=== PATIENT | female | born 1995 | race Caucasian/White ===

== ENCOUNTER 2018-08-26 21:15 | Emergency (ER) | payer BC ==
[~2018-08-26] VITALS: Ht 165.1 cm; Wt 49.4 kg
[2018-08-26 21:26] VITALS: BP 101/59; PULSE 98; RESP 20; Ht 165.1 cm; Wt 49.4 kg
[2018-08-26] MEDS ORDERED: ACETAMINOPHEN 325 MG TAB PO STA (23:59)
[2018-08-26] MEDS ORDERED: SOD CHLORIDE 0.9% 1,000 ML IV STA (23:59)
[2018-08-27] MEDS ORDERED: SOD CHLORIDE 0.9% 1,000 ML IV STA (00:09)
[2018-08-27] MEDS ORDERED: KETOROLAC 30 MG INJ IV STA (00:09)
[2018-08-27] MEDS ORDERED: DIPHENHYDRAMINE 50 MG INJ IV STA (00:09)
[2018-08-27] MEDS ORDERED: ONDANSETRON 4 MG INJ IV STA (00:09)
[2018-08-27] MEDS ORDERED: METOCLOPRAMIDE 10 MG INJ IV STA (00:09)
[2018-08-27] MEDS ORDERED: ACETAMINOPHEN 325 MG TAB PO STA (00:09)
[2018-08-27] MEDS ORDERED: NAPR-985 PO (06:35)
[2018-08-27] MEDS ORDERED: ACET325T33 PO (06:35)
[2018-08-27] MEDS ORDERED: ONDA4TAB14 PO (06:37)
[2018-08-27] MEDS ORDERED: MED4DP PO (06:40)
[2018-08-27] MEDS ORDERED: SOD CHLORIDE 0.9% 500 ML IV STA (06:53)
--- NOTE | 2018-08-27 23:34 | ERD ---
ER Documentation Chief Complaint Chief Complaint GOLDBERG since last night; has hx of rheumatoid arthritis- needs more meds HPI 22 year old F with hx of nephrectomy at 3 year of age and rheumatoid arthritis who presents to the ED with complaints of a progressively worsening headache since last night. Pt states pain is "pounding," starts at her bilateral temporal area and radiates towards her parietal scalp. No known precipitating or ex acerbating factors. Endorses photophobia and nausea. No vomiting. No neck stiffness/pain. No recent travel. Took a Tylenol at 6:30pm with temporary relief. Also reports shortness of breath with substernal chest pain. Pt also endorses body aches and joint pain. Was previously taking Naproxen and steroids for her RA, but took a drug holiday 1 year ago and has since not been taking any meds. ROS All systems reviewed and are negative except as per history of present illness. Medications Home Meds Active Scripts Methylprednisolone* (Medrol* DOSE PACK) 4 Mg/Dose-Pack Tab.ds.pk, 4 MG PO . DIRECTED, #1 PACKET Prov:DISHIGRIKIAN,ZEPYUR N PA-C 08/27/18 Ondansetron (Ondansetron Odt) 4 Mg Tab.rapdis, 4 MG PO Q6H PRN for NAUSEA AND/OR VOMITING, #10 TAB Prov:DISHIGRIKIAN,ZEPYUR N PA-C 08/27/18 Acetaminophen* (Tylenol*) 325 Mg Tablet, 2 TAB PO Q6 PRN for PAIN AND OR ELEVATED TEMP, #20 TAB Prov:DISHIGRIKIAN,ZEPYUR N PA-C 08/27/18 Naproxen* (Naprosyn*) 500 Mg Tablet, 500 MG PO BID PRN for PAIN AND/OR INFLAMMATION, #30 TAB Prov:DISHIGRIKIAN,ZEPYUR N PA-C 08/27/18 Allergies Allergies: Coded Allergies: No Known Allergy (Unverified , 08/26/18) PMhx/Soc Hx Miscellaneous Medical Probl: Yes (rheumatoid arthritis) Physical Exam Vitals Vital Signs Date Temp Pulse Resp B/P (MAP) Pulse Ox O2 O2 Flow FiO2 Time Delivery Rate 08/26/18 102.8 98 20 101/59 100 21:26 (73) Physical Exam Const: No acute distress Head: Atraumatic Eyes: Normal Conjunctiva, PERRL. EOMI. ENT: Normal External Ears, Nose and Mouth. Neck: Full range of motion. No meningismus. Resp: Clear to auscultation bilaterally Cardio: Regular rate and rhythm, no murmurs Abd: Soft, non tender, non distended. Normal bowel sounds Skin: No petechiae or rashes Back: No midline or flank tenderness Ext: No cyanosis, or edema Neur: Awake and alert x3. Sensation and motor grossly intact. CN II-XII intact. Normal gait. Psych: Normal Mood and Affect Result Diagram: 08/27/183308/27/184 Results 24 hrs Laboratory Tests Test 08/27/18 00:34 08/27/18 00:54 08/27/18 05:19 White Blood Count 17.9 10^3/ul Red Blood Count 3.61 10^6/ul Hemoglobin 11.0 g/dl Hematocrit 32.3 % Mean Corpuscular Volume 89.5 fl Mean Corpuscular Hemoglobin 30.5 pg Mean Corpuscular 34.1 g/dl Hemoglobin Concent Red Cell Distribution Width 11.8 % Platelet Count 216 10^3/UL Mean Platelet Volume 9.6 fl Immature Granulocytes % 0.800 % Neutrophils % 85.6 % Lymphocytes % 7.1 % Monocytes % 6.0 % Eosinophils % 0.2 % Basophils % 0.3 % Nucleated Red Blood Cells % 0.0 /100WBC Immature Granulocytes # 0.140 10^3/ul Neutrophils # 15.3 10^3/ul Lymphocytes # 1.3 10^3/ul Monocytes # 1.1 10^3/ul Eosinophils # 0.0 10^3/ul Basophils # 0.1 10^3/ul Nucleated Red Blood Cells # 0.0 10^3/ul Sodium Level 137 mmol/L Potassium Level 3.3 mmol/L Chloride Level 102 mmol/L Carbon Dioxide Level 25 mmol/L Anion Gap 10 Blood Urea Nitrogen 8 mg/dl Creatinine 0.68 mg/dl Est Glomerular Filtrat > 60 mL/min Rate mL/min Glucose Level 104 mg/dl Calcium Level 8.5 mg/dl POC Beta HCG, Qualitative NEGATIVE Urine Color YELLOW Urine Clarity CLEAR Urine pH 5.0 Urine Specific [place] 1.015 Urine Ketones 1+ mg/dL Urine Nitrite NEGATIVE mg/dL Urine Bilirubin NEGATIVE mg/dL Urine Urobilinogen NEGATIVE mg/dL Urine Leukocyte Esterase NEGATIVE Devon/ul Urine Microscopic RBC 4 /HPF Urine Microscopic WBC 2 /HPF Urine Bacteria FEW /HPF Urine Hemoglobin 2+ mg/dL Urine Glucose NEGATIVE mg/dL Urine Total Protein NEGATIVE mg/dl Current Medications Medications Dose Sig/Kostas Start Time Status Last (Trade) Ordered Route PRN Stop Time Admin Dose Reason Admin Sodium 1,000 ml @ Q1H STAT 08/26/18 DC Chloride 1,000 mls/hr IV 23:59 08/27/18 00:09 650 mg ONCE STAT 08/26/18 DC Acetaminophen PO 23:59 (Tylenol 08/27/18 00:09 Tab) Sodium 1,000 ml @ Q1H STAT 08/27/18 DC 08/27/18 Chloride 1,000 mls/hr IV 00:09 01:00 08/27/18 01:08 650 mg ONCE STAT 08/27/18 DC 08/27/18 Acetaminophen PO 00:09 00:59 (Tylenol 08/27/18 00:11 Tab) 10 mg ONCE STAT 08/27/18 DC 08/27/18 Metoclopramid IV 00:09 00:58 e HCl 08/27/18 00:11 (Reglan) Ondansetron 4 mg ONCE STAT 08/27/18 DC 08/27/18 HCl (Zofran IV 00:09 00:59 Inj) 08/27/18 00:11 Ketorolac 30 mg ONCE STAT 08/27/18 DC 08/27/18 Tromethamine IV 00:09 00:58 (Toradol) 08/27/18 00:11 25 mg ONCE STAT 08/27/18 DC 08/27/18 Diphenhydrami IV 00:09 00:58 ne HCl 08/27/18 00:11 (Benadryl) Sodium 500 ml @ Q1H STAT 08/27/18 DC 08/27/18 Chloride 500 mls/hr IV 06:53 06:56 08/27/18 07:52 Procedures/MDM LABS CBC: WBC of 17 with left shift. Mild anemia with h/h of 11 and 32. CMP: no e/o severe acidosis, alkalosis, renal failure, diabetic ketoacidosis, liver disease Urine: no significant hematuria or pyuria beta hcg : negative Influenza: negative Otherwise within normal limits, unremarkable or as documented above. DIAGNOSTIC IMAGING: PROCEDURE: XR Chest 1 View CLINICAL INDICATION: Shortness of breath. TECHNIQUE: VIEWS: 1 IMAGES: 1 COMPARISON: None. FINDINGS: CARDIAC AND MEDIASTINAL SILHOUETTES: Within normal limits. LUNGS: Appear clear. OSSEOUS STRUCTURES: Unremarkable. IMPRESSION: 1. No acute abnormality is appreciated. ED COURSE: The patient was given Tylenol, IVFs, Zofran, Toradol, Benadryl, Reglan The medication was well tolerated and the patient had market improvement in symptoms. The patient remained stable throughout ED course. MEDICAL DECISION MAKIN yo F with RA and one kidney who presents with headache and joint pain. She has no focal neurological deficits on physical exam. Clinical presentation not consistent with subarachnoid hemorrhage, epidural or subdural hematoma, IC mass, CVA, encephalitis or meningitis. Headache most consistent with primary headache, likely tensions vs migraine. Pt also with flare up of her arthritis. Has a fever of 102F here with WBC of 17K. No evidence of bacterial pneumonia, UTI or any other serious bacterial infection. Unclear source of fever, could be viral. I have low suspicion for meningitis. Pt has full ROM of her neck without stiffness, no focal neuro deficits and no recent travel. She felt significant better status post fluids, Toradol, benadryl and Reglan. Pt stable for outpt mgmt and follow up. Strict return precautions discussed. PRESCRIPTIONS: Naproxen, Medrol dosepak, Tylenol, Zofran SPECIALIST FOLLOW UP RECOMMENDED: None Patient has been advised to follow up with primary care in 1-2 days. Departure Diagnosis: Primary Impression: Headache Additional Impressions: Rheumatoid arthritis Fever Condition: Stable Patient Instructions: Self-Care for Headaches Referrals: [facility] YOU HAVE RECEIVED A MEDICAL SCREENING EXAM AND THE RESULTS INDICATE THAT YOU DO NOT HAVE A CONDITION THAT REQUIRES URGENT TREATMENT IN THE EMERGENCY DEPARTMENT. FURTHER EVALUATION AND TREATMENT OF YOUR CONDITION CAN WAIT UNTIL YOU ARE SEEN IN YOUR DOCTORS OFFICE WITHIN THE NEXT 1-2 DAYS. IT IS YOUR RESPONSIBILITY TO MAKE AN APPOINTMENT FOR FOLOW-UP CARE. IF YOU HAVE A PRIMARY DOCTOR --you should call your primary doctor and schedule an appointment IF YOU DO NOT HAVE A PRIMARY DOCTOR YOU CAN CALL OUR PHYSICIAN REFERRAL HOTLINE AT IF YOU CAN NOT AFFORD TO SEE A PHYSICIAN YOU CAN CHOSE FROM THE FOLLOWING [facility] [address] [facility]. [facility] [address] [facility] [facility] [address] [facility] [address] [facility] [address] [facility]. [facility]. [address] [facility]. [facility] YOU HAVE RECEIVED A MEDICAL SCREENING EXAM AND THE RESULTS INDICATE THAT YOU DO NOT HAVE A CONDITION THAT REQUIRES URGENT TREATMENT IN THE EMERGENCY DEPARTMENT. FURTHER EVALUATION AND TREATMENT OF YOUR CONDITION CAN WAIT UNTIL YOU ARE SEEN IN YOUR DOCTORS OFFICE WITHIN THE NEXT 1-2 DAYS. IT IS YOUR RESPONSIBILITY TO MAKE AN APPOINTMENT FOR FOLOW-UP CARE. IF YOU HAVE A PRIMARY DOCTOR --you should call your primary doctor and schedule and appointment IF YOU DO NOT HAVE A PRIMARY DOCTOR YOU CAN CALL OUR PHYSICIAN REFERRAL HOTLINE AT . IF YOU CAN NOT AFFORD TO SEE A PHYSICIAN YOU CAN CHOSE FROM THE FOLLOWING [facility] INSTITUTIONS: [facility] [address] [place] [address] [facility] [address] [place] [address] [facility] + [facility] [address] [place] [address] [facility] URGENT CARE/SPECIALTIES Additional Instructions: Call your primary care doctor TOMORROW for an appointment during the next 2-4 days and bring all the information and medications prescribed. If the symptoms get worse and your provider is unavailable, return to the Emergency Department immediately. VÍCTOR CASTANEDA PA-C Aug 27, 2018 23:34
== END 2018-08-27 07:52 | disposition home or self-care (01) ==
LOC: FTE 21:15
DX: M06.9 Rheumatoid arthritis, unspecified (principal); R50.9 Fever, unspecified
CPT/HCPCS: 36415; 71045; 80048; 81001; 81025; 85025; 87400; 96361; 96374; 96375; 99284; J1200; J1885; J2405; J2765; J7030; J7040